=== PATIENT | female | born 1980 | race Caucasian/White ===

== ENCOUNTER 2020-07-27 09:26 | Observation (INO) | payer BC ==
--- NOTE | 2020-07-26 20:34 | HP ---
ADMIT DATE: 07/27/2020 PREOPERATIVE HISTORY AND PHYSICAL DATE OF ADMISSION: 07/27/2020 HISTORY OF PRESENT ILLNESS: The patient is a pleasant 39-year-old who in 06/2019 and 07/2019 underwent lumbar surgery at another institution. This was for severe back and right leg pain as well as problems with bowel and bladder function. Following those surgeries, her bowel and bladder function improved, but she was left with significant right leg pain along with weakness in her right foot from that time to the present. Standing, sitting or walking increases her pain. She rates her pain 8/10 or higher. She says she always has pain of at least 6/10. Changing positions frequently can help her some. She is taking Aleve. She had decompressive therapy after surgery without benefit. She has had postoperative physical therapy without benefit. She saw another surgeon who wanted to fuse her spine and she was not interested in that approach. There is no problem on the left side. PAST MEDICAL HISTORY: Headaches. PAST SURGICAL HISTORY: Lumbar surgery as mentioned above, thyroidectomy in 12/2019. CURRENT MEDICATIONS: Fluoxetine, Aleve, pregabalin. FAMILY HISTORY: Cancer, diabetes, heart disease. SOCIAL HISTORY: Employed in an office. . Nonsmoker. Drinks alcohol 1-2 times per month. ALLERGIES: TETRACYCLINE, CONTROL PILLS AND TOPAMAX. REVIEW OF SYSTEMS: A 12-point review of systems was performed and is noncontributory except that mentioned above. PHYSICAL EXAMINATION: GENERAL: Alert, pleasant, in no acute distress. HEAD: Normocephalic, atraumatic. SKIN: Warm and dry, well-healed lumbar incision. MUSCULOSKELETAL: Lumbar paraspinal muscle bulk is normal, restricted range of motion of the lumbar spine, [id number] tenderness of the lower lumbar spine with palpation, normal range of motion of the lower extremities bilaterally. EXTREMITIES: No clubbing, cyanosis or edema. NEUROLOGIC: Alert and oriented x 3, normal recent and remote memory. Strength is 5/5 in the lower extremities except 4/5 right plantar flexion, sensory was intact to light touch in the lower extremities except for decreased sensation on the heel, bottom of her foot and lateral aspect of her right foot, reflexes were present and symmetric in the lower extremities bilaterally, negative straight leg raising bilaterally, antalgic gait favoring her right leg. IMAGING: I reviewed her lumbar MRI scan. This study is from 07/15/2020. On that study, there is evidence of a large disk herniation at L5-S1, which is central and right-sided with lifting and compression of the right S1 nerve root. ASSESSMENT AND PLAN: I believe she has residual and recurrent disk herniation at L5-S1, which is central and right-sided. The right S1 nerve root is compressed and the patient is significantly impaired because of this. The problem has been present for at least a year and she has failed to improve with time, decompressive therapy as well as lumbar physical therapy. My recommendation is that we operate and perform a lumbar microdiskectomy decompressing the root in this region. Surgery will be of increased difficulty because of the fact that she has undergone 2 surgeries previously at this level. I would use [employer] guidance as well to assist in the operation to help increase the level of safety. At this point, even though she has had 2 previous surgeries, I would not fuse her spine. If for example, after surgery, she had significant problems with back pain and continued leg pain, then certainly surgery with fusion could be an option. I discussed all of this with her including the technique, risk and expected postoperative course. She understands and would like to go ahead. BENNY PANTOJA MD DR: HAFSA/gerald JOB#: [id number] / [id number] MICHAEL
[2020-07-27] VITALS (8 sets, daily range): BP systolic 97–132; BP diastolic 49–80
[~2020-07-27] VITALS: Ht 162.6 cm; Wt 93.0 kg
[~2020-07-27 09:26] MED LIST: BACITRACIN 50,000 UNIT in IV NORMAL SALINE 1000ML BAG 1,000 ML IRR ONE; BUPIVACAINE-EPI 0.5%-1:200000 MPF 30 ML VIAL. ONE; FLUO40CA2 PO; FLUT9.9S NS; GELATIN SPONGE SIZE 100. ONE; IV RINGERS,LACTATED 1000ML 1,000 ML IV SCH; KETOROLAC 60 MG/2 ML VIAL. ONE; METH-561 PO; NAPR220T70 PO; PREG50CA91 PO; PROCHLORPERAZINE 10 MG/2 ML VIAL. IVP PRN; THROMBIN TOPICAL 20,000 UNIT SPRAY.SYRN KIT TP ONE; TIZA4TAB2 PO; fentaNYL PF VIAL 100 MCG/2 ML VIAL IVP PRN
[2020-07-27] MEDS ORDERED: LIDOCAINE 2% PF 5 ML VIAL. ONE (11:14)
[2020-07-27] MEDS ORDERED: ONDANSETRON PF 4 MG/2 ML VIAL. ONE (11:14)
[2020-07-27] MEDS ORDERED: PROPOFOL 50 ML IV ONE (11:14)
[2020-07-27] MEDS ORDERED: PHENYLEPHRINE in 0.9% NACL PF 1 MG/10 ML SYRINGE. IV ONE (11:14)
[2020-07-27] MEDS ORDERED: DEXAMETHASONE SOD PHOS 20 MG/5 ML VIAL. ONE (11:14)
[2020-07-27] MEDS ORDERED: REMIFENTANIL 2 MG VIAL. IV ONE (11:15)
[2020-07-27] MEDS ORDERED: ROCURONIUM 50 MG/5 ML VIAL. ONE (11:15)
[2020-07-27] MEDS ORDERED: ePHEDrine PF IN SALINE 50 MG/10 ML SYRINGE. IV ONE (11:15)
[2020-07-27] MEDS ORDERED: fentaNYL PF VIAL 100 MCG/2 ML VIAL ONE (11:15)
[2020-07-27] MEDS ORDERED: SUCCINYLCHOLINE 200 MG/10 ML VIAL. ONE (11:15)
[2020-07-27] MEDS ORDERED: MIDAZOLAM HCL/PF 2 MG/2 ML VIAL. ONE (11:16)
[2020-07-27] MEDS ORDERED: NEOSTIGMINE METHYLSULFATE 5 MG/5 ML SYRINGE. ONE (12:43)
[2020-07-27] MEDS ORDERED: ACETAMINOPHEN 325 MG TABLET. PO PRN (13:15)
[2020-07-27] MEDS ORDERED: HYDROcodone/APAP 5/325MG 1 TAB TABLET PO PRN (13:15)
[2020-07-27] MEDS ORDERED: ONDANSETRON PF 4 MG/2 ML VIAL. IVP PRN (13:15)
[2020-07-27] MEDS ORDERED: MAGNESIUM HYDROXIDE 2,400 MG/30 ML ORAL.SUSP. PO PRN (13:15)
[2020-07-27] MEDS ORDERED: fentaNYL PF VIAL 100 MCG/2 ML VIAL IVP PRN (13:15)
[2020-07-27] MEDS ORDERED: MAG HYDROX/ALUMINUM HYD/SIMETH 30 ML ORAL.SUSP PO PRN (13:15)
[2020-07-27] MEDS ORDERED: diphenhydrAMINE HCL 25 MG CAPSULE PO PRN (13:15)
[2020-07-27] MEDS ORDERED: METHOCARBAMOL 750 MG TABLET PO PRN (13:15)
[2020-07-27] MEDS ORDERED: NALOXONE 0.4 MG/ML VIAL. IV PRN (13:15)
[2020-07-27] MEDS ORDERED: CALCIUM CARBONATE 500 MG TAB.CHEW PO PRN (13:15)
[2020-07-27] MEDS ORDERED: 0.9 % SODIUM CHLORIDE 10 ML DISP.SYRIN. IV PRN (13:15)
[2020-07-27] MEDS ORDERED: POTASSIUM CL 20MEQ D5-0.45NACL 1,000 ML IV SCH (13:15)
[2020-07-27] MEDS ORDERED: DESFLURANE > 120 MINUTES IH ONE (14:26)
[2020-07-27] MEDS ORDERED: PROPOFOL 100 ML IV ONE (14:26)
[2020-07-27] MEDS ORDERED: MORPHINE SULFATE 2 MG/ML VIAL. ONE (15:45)
[2020-07-27] MEDS: MORPHINE SULFATE 2 MG/ML VIAL. IVP PRN ×2 (15:47→15:57)
[2020-07-27] MEDS ORDERED: HYDROmorphone 2 MG/ML VIAL ONE (16:00)
[2020-07-27] MEDS: HYDROmorphone 2 MG/ML VIAL IVP PRN ×2 (16:08→16:29)
--- NOTE | 2020-07-27 16:28 | OP ---
DATE OF SURGERY: 07/27/2020 PREOPERATIVE DIAGNOSES: Herniated lumbar disc, L5-S1 with severe right lumbar radiculopathy. POSTOPERATIVE DIAGNOSES: Herniated lumbar disc, L5-S1 with severe right lumbar radiculopathy. OPERATION PERFORMED: This is a reoperation. A hemilaminotomy and microdiscectomy, reop, L5-S1, right. SURGEON: Aydin Pantoja M.D. CUTTER V GROOVE: KATHI Braga, who assisted with all aspects of the surgery. We also used electrophysiologic monitoring including EMG and SSEP. Fluoroscopy was employed as well as the microscope and microscopic dissection. OPERATIVE INDICATIONS: The patient is a pleasant 39-year-old who in the past undergone 2 lumbar surgeries at L5-S1 on the right for a large herniated lumbar disc. She continued to suffer with a severe radiculopathy and asked me to consider operating. Reviewing her studies, it appeared that there was some pressure on the right S1 root and I agreed to operate. I explained to her that usually I fused at this point; however, I felt that without fusion I could still safely operate and obtained a good decompression of the root to see if this would help her. I discussed with her the surgery, the risks, technique and expected postoperative course and she wished to go ahead. DESCRIPTION OF PROCEDURE: Following general endotracheal anesthesia, the patient was positioned prone on the Jaya table. Lumbar region prepped and draped in the standard fashion. JABIER hose and AV impulse boots were applied for DVT prophylaxis. A microscope was draped. Fluoroscopy was draped and brought into the field. Monitoring was established. I did have a lumbar CT scan done prior to surgery in case [employer] was needed and on the lumbar CT, there was heavily calcified dome over the large herniated disc At any rate, I decided to make my exposure without the use of [employer]. I exposed the L5 and S1 lamina and the edges of the previous laminotomy. I began drilling superiorly and inferiorly and laterally. I drilled inferiorly to find the medial edge of the pedicle and performed a partial foraminotomy. I then went around the pedicle trimming bone into created an exposure just lateral to the lateral edge of the dura and then working superiorly. There was still lateral ligamentum flavum intact and I trimmed this working superiorly and exposed the lateral dura and the S1 root. There was ligamentum missing from the central part of the exposure and laterally there was not and this allowed me an excellent plane to visualize the nerve root. I then gently retracted the root medially. A large calcified disc herniation was seen. The calcification was so significant that I gently held the root and protected it and used high-speed air drill to drill through the calcification. There was softer disc inside, but it was densely adherent and although I did remove some disc. Though I did remove some disc, there was still disc present within this calcified shell. I retracted the root as medially as far as I felt I safely could. I used the 1 and 2 mm Kerrisons to help trim the calcified dome and I used the drill further superiorly and inferiorly to drill as much as I safely could to create a path of the S1 root to pass without compression dorsolaterally. I assured myself with no pressure on the root with a generous foraminotomy and worked superiorly, that was clearly above the upper edge of the root. At this point, then I felt that I had an excellent decompression of the S1 root. I felt that I did as much as I safely could perform this decompression. I irrigated copiously. Hemostasis was excellent throughout the operation. I did use a bipolar sparingly as well as bone wax sparingly. I irrigated copiously. I closed the wound in layers with absorbable suture and the skin was closed with 4-0 subcuticular stitch. I felt the surgery went very well. AYDIN PANTOJA MD DR: RAGINI/gerald JOB#: [id number] / [id number] MICHAEL
--- NOTE | 2020-07-27 17:29 | RAD ---
EXAM: CT Lumbar Spine without IV contrast INDICATION: Reason: HERNIATED DISC BRAIN lab / Spl. Instructions: / History: TECHNIQUE: Multi-detector row CT images were obtained through the lumbar spine without the use of IV contrast. Post-processing sagittal and coronal reconstructed images were obtained for interpretation . All CT scans performed at this facility utilize dose optimization techniques as appropriate to the exam, including the following: Automated exposure control and adjustment of the mA and/or KV accordin g to patient size (this includes techniques or standardized protocols for targeted exams where dose i s indication/reason for exam). COMPARISON: None FINDINGS: The lowest fully formed disc is referred to as the L5-S1 level. ALIGNMENT: Alignment is within normal limits. OSSEOUS: No evidence of fracture or bone destruction. DISC SPACES: Disc osteophyte complex at L5-S1 with disc space narrowing ossification along the annul us is present. There is subchondral sclerosis at the inferior L5 with subchondral cystic change resul ting in concave deformities of the inferior endplate of L5. Mild diffuse disc bulge at L4-5 is also p resent. FACET JOINTS: Unremarkable. SPINAL CANAL: There is moderate central canal stenosis at L5-S1 due to the disc osteophyte complex. The central canal measures up to 7 mm at this level. There is also minimal central canal narrowing at L4-L5 due to a diffuse disc bulge present, with central canal AP diameter measuring 10 mm (compared with 13 mm at the remaining relatively unaffected lumbar spinal levels). NEUROFORAMINA: Moderate bilateral foraminal stenosis at L5, right greater than left, is present due to disc height and endplate osteophytic spurring. SOFT TISSUES: Unremarkable. IMPRESSION: Chronic disc osteophyte complex at the lumbosacral junction with associated central canal and bilater al foraminal stenoses as described. Lesser degenerative changes in the lumbar spine are also present, as described. Electronically signed by: Vitor Wilson MD (07/27/2020 5:26 PM) [id number]
[2020-07-27] MEDS: PREGABALIN 50 MG CAPSULE PO SCH (18:04)
[2020-07-27] MEDS: HYDROcodone/APAP 5/325MG 1 TAB TABLET PO PRN (18:08)
[2020-07-27] MEDS: NAPROXEN 250 MG TABLET PO SCH (21:00)
[2020-07-27] MEDS: DOCUSATE SODIUM 100 MG CAPSULE. PO SCH (21:42)
[2020-07-28] MEDS: HYDROcodone/APAP 5/325MG 1 TAB TABLET PO PRN ×2 (02:24→08:34)
[2020-07-28 03:00] VITALS: BP 104/54
[2020-07-28 07:15] VITALS: BP 113/50
[2020-07-28] MEDS: NAPROXEN 250 MG TABLET PO SCH (08:30)
[2020-07-28] MEDS: DOCUSATE SODIUM 100 MG CAPSULE. PO SCH (08:31)
[2020-07-28] MEDS: PREGABALIN 50 MG CAPSULE PO SCH (08:31)
[2020-07-28] MEDS ORDERED: FLUoxetine HCL 20 MG CAPSULE PO SCH (09:00)
[2020-07-28] MEDS ORDERED: FLUTICASONE 50MCG/NASAL SPRAY 16GM BOTTLE. NS SCH (09:00)
--- NOTE | 2020-07-28 09:37 | NUR ---
SW following. Discussed with RN, pt from home, room air, regular diet. PT ordered. Pt had surgery 07/27/20. RN advised no SW needs, anticipates discharge home today with self care. SW will continue to follow.
[2020-07-28 10:59] VITALS: BP 91/56
--- NOTE | 2020-07-28 11:14 | NUR ---
Episode: working with therapy walking hallways. Pt c/o feeling lightheaded. BP checked 97/54 with heart rate 70. Pt return to room in lounge chair. Elevated legs and wanted ice pack to lower back. Rechecked bp 104/61 with heart rate 68. Cont monitor.
--- NOTE | 2020-07-28 11:30 | NUR ---
Feeling better. Up in bathroom getting dressed. Daughter in room. Cont. monitor.
[2020-07-28] MEDS ORDERED: DOCU-153 PO (12:07)
[2020-07-28] MEDS ORDERED: HYDR-2761 PO (12:07)
[2020-07-28] MEDS ORDERED: METH-562 PO (12:08)
--- NOTE | 2020-07-28 12:09 | DISCH ---
DISCHARGE INSTRUCTIONS Condition on Discharge Condition on Discharge: Stable Activity After Discharge Activity Instructions for Disc: Activity as tolerated, Avoid exertion Other activity instructions: no driving for a week Bathing Instructions: Shower-keep dressing dry, No Tub Bath until see Lifting Instructions after Dis: No heavy lifting, No pulling or pushing, Do not lift >10 pounds Diet after Discharge Additional Diet Restrictions: resume home diet Wound Incision Care Wound/Incision Care: Ice to area for comfort Other wound/incision instructi: may remove dressing after 48 hours if dry, no soaking Contacting the after DC Call your doctor for: Concerns you may have Follow-Up Follow up with: Dr. Pantoja nurse in 2 weeks [phone] BENNY PANTOJA MD Jul 28, 2020 12:09
--- NOTE | 2020-07-28 12:50 | NUR ---
Discharge instructions given with prescriptions. Answered questions and concerns. Verbalized understanding. Pt discharged home accompanied by daughter and spouse. Escorted out by w/c.
--- NOTE | 2020-08-01 18:14 | PATHOLOGY ---
[facility] [place] Accession Number: [id number] . 01 Material submitted: . back - LUMBAR DISC AND DECOMPRESSION. Modifiers: LUMBAR DISC . 01 Clinical history: . PRE-OPERATIVE DIAGNOSIS: LUMBAR HERNIATED DISC, RADICULOPATHY OPERATIVE PROCEDURE: RE-OPERATION, LUMBAR MICRODISCECTOMY L5-S1 POST-OPERATIVE DIAGNOSIS: PENDING . 02 Diagnosis: Segments of fibrocartilaginous, adipose, and skeletal muscle tissue and bone, lumbar disc and decompression: - Degenerative changes of fibrocartilaginous tissue. (JPM:irena; 08/01/2020) MBR 08/01/2020 1615 Local . 02 Comment: There is no evidence of an acute inflammatory process or malignancy. (YURIM:irena; 08/01/2020) . 02 Electronically signed: . Acosta Pardo MD, Pathologist NPI- [id number] . 01 Gross description: . The specimen is received in formalin, labeled "Edwige Sterner, lumbar disc and decompression". Received are multiple segments of pale gutierrez gritty tissue admixed with small fragments of bone measuring 4.2 x 2.7 x 0.8 cm in aggregate dimensions. The specimen is submitted representatively in cassette A1, following light decalcification. (CAA; 07/29/2020) QAC/QAC 08/01/2020 1614 Local . 02 Pathologist provided ICD-10: M51.36 . 02 CPT . 641266, [id number] Specimen Comment: A courtesy copy of this report has been sent to [phone] Specimen Comment: Report sent to Performed at: [address], [place] [id number] MD Lakhwinder Newsome MD Phone: [phone] Performed at: 02 [facility] [address] [place], [place] [id number] MD Acosta Pardo MD Phone: [phone]
== END 2020-07-28 12:50 | disposition home or self-care (01) ==
LOC: SURG 09:26 → 4 NORTH 13:14
PROVIDERS: ADMIT Neurological Surgery; ATTEND Neurological Surgery
DX: M51.17 Intervertebral disc disorders with radiculopathy, lumbosacral region (principal); M51.26 Other intervertebral disc displacement, lumbar region; M51.16 Intervertebral disc disorders with radiculopathy, lumbar region; E89.0 Postprocedural hypothyroidism; R51.9 Headache, unspecified
CPT/HCPCS: 63042; 72131; 81025; 88304; 88311; 96361; 96374; 97162; A4364; A4930; A6254; A6258; G0378; G0379; J0330; J0690; J1100; J1170; J1885; J2250; J2270; J2370; J2405; J2704; J2710; J3010; J3480; 76000; A4452

== ENCOUNTER → 2021-03-31 | Outpatient (CLI) | payer BC ==
[~2021-03-31] MED LIST changes: -BACITRACIN 50,000 UNIT in IV NORMAL SALINE 1000ML BAG 1,000 ML IRR ONE; -BUPIVACAINE-EPI 0.5%-1:200000 MPF 30 ML VIAL. ONE; +CYCL10TA19 PO; +DOCU-109 PO; +DOCU-148 PO; -GELATIN SPONGE SIZE 100. ONE; +HYDR-2761 PO; +HYDR-2769 PO; -IV RINGERS,LACTATED 1000ML 1,000 ML IV SCH; -KETOROLAC 60 MG/2 ML VIAL. ONE; +METH-562 PO; +ONDA4TAB7 PO; -PROCHLORPERAZINE 10 MG/2 ML VIAL. IVP PRN; -THROMBIN TOPICAL 20,000 UNIT SPRAY.SYRN KIT TP ONE; +TIZA-75 PO; -TIZA4TAB2 PO; -fentaNYL PF VIAL 100 MCG/2 ML VIAL IVP PRN
[2021-03-31 14:16] LABS: BASO # 0.1 x10^3/uL (0.0-0.2); BASO % 1 % (0-3); EOS # 0.1 x10^3/uL (0.0-0.7); EOS % 1 % (0-3); LYMPH # 1.7 x10^3/uL (1.0-4.8); LYMPH % 25 % (24-48); MEAN CORPUSCULAR HEMOGLOBIN 28 pg (25-35); MEAN CORPUSCULAR HGB CONC 33 g/dL (31-37); MEAN CORPUSCULAR VOLUME 84 fL (79-100); MONO # 0.4 x10^3/uL (0.0-1.1); MONO % 5 % (0-9); NEUT # 4.6 x10^3/uL (1.8-7.7); NEUT % 67 % (31-73); PLATELET COUNT 382 x10^3/uL (140-400); RED BLOOD COUNT 4.31 x10^6/uL (3.50-5.40); WHITE BLOOD COUNT 6.8 x10^3/uL (4.0-11.0)
[2021-03-31 14:30] LABS: PROTHROMBIN TIME PATIENT 12.5 SEC (11.7-14.0)
[2021-03-31 14:38] LABS: ALBUMIN 3.9 g/dL (3.4-5.0); ALBUMIN/GLOBULIN RATIO 1.3 (1.0-1.7); CALCIUM 8.5 mg/dL (8.5-10.1); CREATININE 0.8 mg/dL (0.6-1.0); GFR 79.4; POTASSIUM 3.5 mmol/L (3.5-5.1); TOTAL BILIRUBIN 0.3 mg/dL (0.2-1.0)
== END ==
LOC: SURGPAT 13:36
PROVIDERS: ATTEND Neurological Surgery
DX: Z01.812 Encounter for preprocedural laboratory examination (principal); M51.17 Intervertebral disc disorders with radiculopathy, lumbosacral region; M48.07 Spinal stenosis, lumbosacral region; Z20.822 Contact with and (suspected) exposure to COVID-19
CPT/HCPCS: 80053; 85025; 85610; 85730; 87641; U0003; U0005